=== PATIENT | female | born 1980 | race American Indian/Alaskan Native ===

== ENCOUNTER 2021-03-31 04:09 | Emergency (ER) | payer SELFPAY ==
[2021-03-31] MEDS ORDERED: ACETAMINOPHEN 500 MG TAB PO ONE (04:25)
[2021-03-31] MEDS ORDERED: IBUPROFEN 600 MG TAB PO ONE (04:25)
[2021-03-31 04:51] VITALS: BP 146/95
--- NOTE | 2021-03-31 05:16 | XRay Report ---
. LEFT ANKLE 3 VIEW(S) INDICATION / CLINICAL INFORMATION: Fall - pain COMPARISON: None available. FINDINGS: BONES / JOINT(S): Mildly displaced fracture of the left distal fibula. There is mild widening of the medial tibiotalar joint. No significant arthritis. SOFT TISSUES: No significant abnormality. ADDITIONAL FINDINGS: None. Signer Name: David Whitley DO Signed: 03/31/2021 5:12 AM Workstation Name: [id number]
--- NOTE | 2021-03-31 05:37 | Emergency Department Report ---
ED Extremity Problem HPI - General Chief complaint: Extremity Injury, Lower Stated complaint: ANKLE INJURY Source: patient Mode of arrival: Wheelchair Limitations: No Limitations - History of Present Illness Initial comments: Patient is a 41-year-old F Lebanese female with no significant past medical history who was walking on wet heel slipped and fell. Patient is injured her left ankle. She did hear a popping noise when this occurred. Initially unable to get herself and bear weight. Patient complaining of lateral pain and swelling. Pain estimated 7 out of 10 in severity. No head injury of loss of consciousness. Severity scale (0 -10): 9 - Related Data Previous Rx's Medication Instructions Recorded Last Taken Type Ketorolac [Toradol] 10 mg PO Q6H PRN #20 tablet 03/31/21 Unknown Rx Allergies Allergy/AdvReac Type Severity Reaction Status Date / Time No Known Allergies Allergy Verified 03/31/21 04:29 ED Review of Systems ROS: Stated complaint: ANKLE INJURY Other details as noted in HPI Comment: All other systems reviewed and negative ED Past Medical Hx - Past Medical History Previous Medical History?: No - Surgical History Past Surgical History?: No - Medications Home Medications: Home Medications Medication Instructions Recorded Confirmed Last Taken Type Ketorolac [Toradol] 10 mg PO Q6H PRN #20 tablet 03/31/21 Unknown Rx ED Physical Exam - General Limitations: No Limitations General appearance: alert, in no apparent distress - Head Head exam: Present: atraumatic, normocephalic - Eye Eye exam: Present: normal appearance - ENT ENT exam: Present: mucous membranes moist - Neck Neck exam: Present: normal inspection - Respiratory Respiratory exam: Present: normal lung sounds bilaterally. Absent: respiratory distress - Cardiovascular Cardiovascular Exam: Present: regular rate, normal rhythm. Absent: systolic murmur, diastolic murmur, rubs, gallop - GI/Abdominal GI/Abdominal exam: Present: soft, normal bowel sounds - Extremities Exam Extremities exam: Present: normal inspection - Expanded Lower Extremity Exam Left Ankle exam: Present: tenderness, swelling (lateral ). Absent: dislocation Neuro vascular tendon exam: Present: no vascular compromise - Back Exam Back exam: Present: normal inspection - Neurological Exam Neurological exam: Present: alert, oriented X3 - Psychiatric Psychiatric exam: Present: normal affect, normal mood - Skin Skin exam: Present: warm, dry, intact, normal color. Absent: rash ED Course Vital Signs 03/31/21 04:47 Temperature 98.9 F Pulse Rate 95 H Respiratory 18 Rate Blood Pressure 146/95 [Right] O2 Sat by Pulse 100 Oximetry ED Medical Decision Making - Radiology Data Spiral distal fibular shaft fracture with no significant displacement is present on the left lower extremity - Medical Decision Making Patient with a distal fibular fracture. Patient placed in a posterior short leg splint with side stirrups. Patient given crutches and she'll be given follow- up with orthopedic surgery. The fracture is not significantly displaced and the patient likely will be switched to a cast or walking boot. Patient likely will not need surgery. Our care today constitutes fracture care Critical care attestation.: If time is entered above; I have spent that time in minutes in the direct care of this critically ill patient, excluding procedure time. ED Disposition Clinical Impression: Fibula fracture Qualifiers: Encounter type: initial encounter Fibula location: distal Fracture type: closed Fracture morphology: unspecified fracture morphology Laterality: left Qualified Code(s): S82.832A - Other fracture of upper and lower end of left fibula, init ial encounter for closed fracture Disposition: 01 HOME / SELF CARE / HOMELESS Is pt being admited?: No Does the pt Need Aspirin: No Condition: Stable Instructions: Nondisplaced Fibular Ankle Fracture Treated With Immobilization, Adult, Cast or Splint Care, Adult, [id number] Referrals: TRACEY BOJORQUEZ MD [Staff Physician] - 3-5 Days Time of Disposition: 05:37
== END 2021-03-31 06:09 | disposition home or self-care (01) ==
LOC: ED 04:09
DX: S82.832A Other fracture of upper and lower end of left fibula, initial encounter for closed fracture (principal); W01.0XXA Fall on same level from slipping, tripping and stumbling without subsequent striking against object, initial encounter; Y93.89 Activity, other specified; Y92.89 Other specified places as the place of occurrence of the external cause; Y99.8 Other external cause status
CPT/HCPCS: 99283

== ENCOUNTER 2021-04-03 12:00 | Emergency (ER) | payer OTHER ==
[2021-04-03 12:15] VITALS: BP 161/98
--- NOTE | 2021-04-03 12:45 | Emergency Department Report ---
ED Lower Extremity HPI - General Chief Complaint: Extremity Injury, Lower Stated Complaint: LOWER EXTREMITY INJURY Time Seen by Provider: 04/03/21 12:11 Source: patient Mode of arrival: Wheelchair Limitations: No Limitations - History of Present Illness Initial Comments: Patient presents with complaints related to a recent left ankle fracture. She had a left fibular fracture. She was seen here. Patient was placed in a splint and discharged with crutches. She is here today because she is still having burning in the heel. There was some question as to whether an orthopedic boot may be beneficial for her. There is no new trauma. She has no knee pain. She has no foot pain. The burning and aching pain is in the heel area as well as the lateral malleolus on the left. Right foot and ankle are nontender. Patient has been using Tylenol, ibuprofen, and ketorolac at home without symptomatic improvement. - Related Data Previous Rx's Medication Instructions Recorded Last Taken Type HYDROcodone/APAP 5-325 [Panacea 1 each PO Q4HR PRN #16 tablet 04/03/21 Unknown Rx 5/325] Allergies Allergy/AdvReac Type Severity Reaction Status Date / Time No Known Allergies Allergy Verified 03/31/21 04:29 ED Review of Systems ROS: Stated complaint: LOWER EXTREMITY INJURY Other details as noted in HPI Comment: All other systems reviewed and negative Constitutional: denies: fever ENT: denies: epistaxis Respiratory: denies: shortness of breath Cardiovascular: denies: chest pain Gastrointestinal: nausea (Secondary to pain) Musculoskeletal: as per HPI Skin: denies: change in color Neurological: denies: numbness Hematological/Lymphatic: denies: easy bruising ED Past Medical Hx - Past Medical History Previous Medical History?: No - Family History Family history: no significant - Medications Home Medications: Home Medications Medication Instructions Recorded Confirmed Last Taken Type HYDROcodone/APAP 5-325 [Panacea 1 each PO Q4HR PRN #16 tablet 04/03/21 Unknown Rx 5/325] ED Physical Exam - General Limitations: No Limitations, Other (Pulse ox noted and normal) General appearance: alert, in no apparent distress, other (Uncomfortable) - Head Head exam: Present: atraumatic, normocephalic - Eye Eye exam: Present: normal appearance. Absent: scleral icterus - ENT ENT exam: Present: normal external ear exam - Neck Neck exam: Absent: meningismus - Respiratory Respiratory exam: Absent: respiratory distress - Cardiovascular Cardiovascular Exam: Absent: JVD - Extremities Exam Extremities exam: Present: normal capillary refill, other (Short leg splint present on the left. Patient is neurovascularly intact.). Absent: pedal edema, calf tenderness - Back Exam Back exam: Present: full ROM. Absent: CVA tenderness (L) - Neurological Exam Neurological exam: Present: alert, oriented X3 - Psychiatric Psychiatric exam: Present: normal affect, normal mood - Skin Skin exam: Present: warm, dry ED Course Vital Signs 04/03/21 12:14 Pulse Rate 102 H Respiratory 16 Rate Blood Pressure 161/98 [Right] O2 Sat by Pulse 99 Oximetry - Reevaluation(s) Reevaluation #1: 04/03/21 14:06 Plain films were reviewed. A prescription for Ortho boot was written. Patient was given analgesics. She should rest, ice, elevate and follow-up. ED Lower Extremity MDM - Medical Decision Making Patient presents with worsening and ongoing pain involving a fibula fracture. She was given NSAIDs without symptomatic improvement. I did provide some hydrocodone here. We did provide a walking boot as some people do well with a walking boot. She did not have a significantly displaced or angulated fracture. Patient was treated symptomatically and referred for orthopedic surgery. She should continue to rest, ice, elevate and use NSAIDs in addition to opioids. Critical Care Time: No Critical care attestation.: If time is entered above; I have spent that time in minutes in the direct care of this critically ill patient, excluding procedure time. ED Disposition Clinical Impression: Closed left fibular fracture Qualifiers: Encounter type: subsequent encounter Fibula location: lateral malleolus Fracture alignment: nondisplaced Fracture healing: with routine healing Qualified Code(s): S82.65XD - Nondisplaced fracture of lateral malleolus of left fibula, subsequent encounter for closed fracture with routine healing Disposition: 01 HOME / SELF CARE / HOMELESS Is pt being admited?: No Condition: Stable Instructions: Nondisplaced Fibular Ankle Fracture Treated With Immobilization, Adult Additional Instructions: Rest, ice, elevate. Try the Ortho boot. Follow-up with orthopedics and work co mp as discussed. Return for problems. Do not drive while taking analgesics. Prescriptions: HYDROcodone/APAP 5-325 [Panacea 5/325] 1 each PO Q4HR PRN #16 tablet PRN Reason: Pain Referrals: PRIMARY CARE, [Primary Care Provider] - 3-5 Days
== END 2021-04-03 18:02 | disposition home or self-care (01) ==
LOC: ED 12:00
DX: S82.65XD Nondisplaced fracture of lateral malleolus of left fibula, subsequent encounter for closed fracture with routine healing (principal); X58.XXXD Exposure to other specified factors, subsequent encounter
CPT/HCPCS: 99282

== ENCOUNTER 2021-05-19 09:54 | Outpatient (CLI) | payer OTHER ==
--- NOTE | 2021-05-19 12:26 | XRay Report ---
LEFT ANKLE 3 VIEWS INDICATION: LEFT ANKLE PAIN. COMPARISON: 03/31/2021 FINDINGS: There is persistent lucency at the oblique distal fibular fracture. No new fractures are seen. There is mild soft tissue swelling diffusely. IMPRESSION: 1. Persistent fracture lucency at the distal fibular fracture suggests possible delayed union. CT wou ld be useful to better characterize for bridging internal callus. Signer Name: Juan Rashid MD Signed: 05/19/2021 12:22 PM Workstation Name: [id number]
== END 2021-05-19 09:55 | disposition home or self-care (01) ==
LOC: XRAY 09:54
PROVIDERS: ATTEND Orthopaedic Surgery
DX: S82.90XA Unspecified fracture of unspecified lower leg, initial encounter for closed fracture (principal); S82.432A Displaced oblique fracture of shaft of left fibula, initial encounter for closed fracture; M79.89 Other specified soft tissue disorders; X58.XXXA Exposure to other specified factors, initial encounter; Y93.89 Activity, other specified; Y92.89 Other specified places as the place of occurrence of the external cause; Y99.8 Other external cause status

== ENCOUNTER 2021-06-05 09:59 | Outpatient (CLI) | payer OTHER ==
--- NOTE | 2021-06-05 11:45 | XRay Report ---
LEFT ANKLE 3 VIEWS INDICATION: S82.90XA UNSPECIFIED FRACTURE LOWER LEG. COMPARISON: 05/19/2021 IMPRESSION: Previously described oblique fracture through the distal fibula is unchanged in position and alignment since 05/19/2021. There is subtle calcified callus identified at the fracture site on t greg's exam although fracture lines remain evident. There appears to be minimal interval healing. No new fracture is appreciated. The remaining bony structures are unremarkable. No significant joint pat hology is appreciated. Signer Name: Red Waters Jr, MD Signed: 06/05/2021 11:37 AM Workstation Name: [id number]
== END 2021-06-05 10:00 | disposition home or self-care (01) ==
LOC: XRAY 09:59
PROVIDERS: ATTEND Orthopaedic Surgery
DX: S82.90XA Unspecified fracture of unspecified lower leg, initial encounter for closed fracture (principal); X58.XXXA Exposure to other specified factors, initial encounter; Y93.89 Activity, other specified; Y92.89 Other specified places as the place of occurrence of the external cause; Y99.8 Other external cause status

== ENCOUNTER 2021-10-13 08:50 | Outpatient (CLI) | payer OTHER ==
--- NOTE | 2021-10-13 12:56 | Magnetic Resonance Report ---
MRI LEFT FOOT WITHOUT CONTRAST INDICATION / CLINICAL INFORMATION: M25.571lt foot pain, sesamoid pathology. TECHNIQUE: Multiplanar, multisequence MR images were obtained. No contrast used. COMPARISON: None available. FINDINGS: BONES: Bipartite medial great toe sesamoid bone with moderate bone marrow edema. Lateral great toe se samoid appears normal. No other bone marrow edema in the visualized midfoot or forefoot. No fracture. No osseous lesion. JOINTS: No significant arthritis. No significant joint effusion or synovitis. MUSCLES: No significant abnormality. FLEXOR TENDONS: No significant abnormality. EXTENSOR TENDONS: No significant abnormality. PERONEAL TENDONS: No significant abnormality. LIGAMENTS: No significant abnormality. SOFT TISSUES: No significant abnormality. ADDITIONAL FINDINGS: None. IMPRESSION: 1. Bipartite medial great toe sesamoid bone with sesamoiditis. Signer Name: Marni Poon MD Signed: 10/13/2021 12:51 PM Workstation Name: [id number]
== END 2021-10-13 08:51 | disposition home or self-care (01) ==
LOC: MRI 08:50
DX: M25.872 Other specified joint disorders, left ankle and foot (principal)

== ENCOUNTER 2021-12-06 12:29 | Outpatient (CLI) | payer OTHER ==
--- NOTE | 2021-12-06 16:56 | Cat Scan Report ---
CT LEFT ANKLE WITHOUT CONTRAST INDICATION / CLINICAL INFORMATION: R/O FIBULAR NONUNION. TECHNIQUE: All CT scans at this location are performed using CT dose reduction for ALARA by means of automated exposure control. COMPARISON: Radiographs 06/05/2021 FINDINGS: BONES: Previously seen obliquely oriented distal fibular fracture has internal and external callus fo rmation. There is persistent fracture lucency along the lateral aspect (axial series 2 image 44). As seen on axial series 2 image 46, there is an ununited 4 mm fracture fragment along the anterior aspec t of the distal fibula. No osseous lesion. JOINT(S): No significant arthritis. No significant effusion. No intra-articular bodies. MUSCLES / TENDONS: No significant abnormality. SOFT TISSUES: No significant abnormality. ADDITIONAL FINDINGS: None. IMPRESSION: 1. Chronic/remote distal fibular fracture. There is bridging internal callus and external callus; how ever, there is persistent fracture lucency along the lateral aspect of the fracture and there is an u nunited 4 mm fracture fragment anteriorly. Signer Name: Juan Rashid MD Signed: 12/06/2021 4:52 PM Workstation Name: [id number]
== END 2021-12-06 12:30 | disposition home or self-care (01) ==
LOC: CT 12:29
PROVIDERS: ATTEND Orthopaedic Surgery Foot and Ankle Surgery
DX: S82.402A Unspecified fracture of shaft of left fibula, initial encounter for closed fracture (principal); X58.XXXA Exposure to other specified factors, initial encounter; Y93.89 Activity, other specified; Y92.89 Other specified places as the place of occurrence of the external cause; Y99.8 Other external cause status